=== PATIENT | female | born 1990 | race Caucasian/White ===

== ENCOUNTER → 2022-12-12 11:26 | Outpatient (CLI) | payer OTHER, SELFPAY ==
[2022-12-12 13:04] LABS: Add Manual Diff / Slide Review NO; Basophils Absolute Auto 0 /uL (0-100); Basophils Percent Auto 0.4 % (0-2); Eosinophils Absolute Auto 100 /uL (0-450); Eosinophils Percent Auto 1.3 % (2-4); Hematocrit 41.9 % (36-46); Hemoglobin 14.3 g/dL (12.0-16.0); Lymphocytes Absolute Auto 2700 /uL (1100-4500); Lymphocytes Percent Auto 30.3 % (25-40); Mean Corpuscular HGB Conc 34.1 % (30-36); Mean Corpuscular Hemoglobin 30.7 PG (26-34); Mean Corpuscular Volume 90.1 fL (80-100); Monocytes Absolute Auto 800 /uL (0-900); Neutrophils Absolute Auto 5200 /uL (1500-7000); Platelet Count 205 X10^3/uL (150-400); Red Blood Cell Count 4.65 X10^6/uL (4.0-5.2); Red Cell Distribution Width 13.2 % (11.6-14.8); White Blood Cell Count 8.8 X10^3/uL (4.5-11.0)
[2022-12-12 13:05] LABS: Appearance Urine UA CLEAR; Bilirubin Urine UA NEGATIVE (NEGATIVE); Color Urine UA YELLOW; Glucose Urine UA NEGATIVE (Negative); Ketones Urine UA NEGATIVE (NEGATIVE); Leukocyte Esterase Urine UA TRACE (NEGATIVE); Nitrite Urine UA NEGATIVE (Negative); Occult Blood Urine UA NEGATIVE (Negative); Protein Urine UA NEGATIVE (Negative); Urobilinogen Urine UA 0.2 E.U./dL (0.2)
[2022-12-12 13:15] LABS: Bacteria Urine Few (2-10); RBC Urine 0-1/HPF (0-5/HPF); WBC Urine 1-5/HPF (0-5/HPF); pH Urine UA 6.5 (4.5-8.0)
[2022-12-12 13:16] LABS: Culture Indicated Urine Cult Not Indicated; Squamous Epithelial Cell Urine 1-5 /HPF (0-5/HPF)
[2022-12-13 05:24] LABS: RPR Screen Non Reactive (Non Reactive)
[2022-12-13 09:46] LABS: Varicella IgG Antibody 2461 index (Immune >165)
[2022-12-13 16:04] LABS: Hepatitis B Surface Antigen NEGATIVE s/c (NEGATIVE); Rubella Antibody IgG 34.8 IU/mL (>15)
[2022-12-13 16:17] LABS: HIV 1 & 2 Ab/Ag 4th Gen Combo NEGATIVE (NEGATIVE); Hep C Virus Ab w/Reflex Quant NEGATIVE s/c (NEGATIVE)
== END ==
PROVIDERS: PCP Family Medicine; Visit Provider Student in an Organized Health Care Education/Training Program
DX: O09.511 Supervision of elderly primigravida, first trimester (principal); Z34.01 Encounter for supervision of normal first pregnancy, first trimester
CPT/HCPCS: 36415; 80055; 81003; 81015; 86787; 86803; 86850; 86900; 86901; 87086; 87389

== ENCOUNTER → 2023-02-20 10:16 | Outpatient (CLI) | payer OTHER, SELFPAY ==
--- NOTE | 2023-02-20 10:19 | DI.US.S_ITS ---
PROCEDURE: US OB >= 14 WEEKS FETUS INDICATIONS: 20 week gestation anatomy scan OUTSIDE/PRIOR DATING DATA: Last menstrual period (LMP): 10/01/2022. LMP-based estimated date of delivery (JERICA): 07/08/2023. First dating scan (date and location): 02/20/2023 at . Estimated date of delivery (JERICA) from first dating scan: 07/06/2023. TECHNIQUE: Real-time scanning was performed of the fetus, with image documentation and biometric measurements. COMPARISON: None. FINDINGS: General: A single living intrauterine gestation is present. Presentation: Transverse; head to the left. Placenta: Placental position is posterior , without previa. Amniotic fluid index: 15.7 cm, normal range is 5-24 cm. Single deepest vertical pocket is 4.3 cm. heart rate: 155 beats per minute. Maternal cervical canal: 4.4 cm long. Normal lower limit is 2.5 cm. biometrics: Biparietal diameter: 20 weeks 5 days Head circumference: 20 weeks 2 days Abdominal circumference: 20 weeks 0 day Femur length: 20 weeks 3 days Clinically estimated gestational age: 20 weeks 2 days Composite gestational age from present scan: 20 weeks 4 days Estimated weight and percentile: 373 g; 70%. Anatomic survey: Neuro: Ventricles are non-dilated at less than 10 mm. Cisterna magna is normal at 3-11 mm. Cerebellum is normal in size and morphology. Nuchal skin fold: Normal at less than 6 mm between 14-21 weeks gestational age. Face: Nose and lips, facial profile are normal. Spine: No evidence for spina bifida. Heart: 4-chambered heart is present, with normal ventricular outflow tracts. Diaphragm: Diaphragm is intact. Stomach: Left-sided stomach is present. Kidneys: No hydronephrosis. Normal is less than 5 mm in 2nd trimester, less than 7 mm in 3rd trimester. Cord: 3-vessel cord has orthotopic insertion. Bladder: Normal in size. Extremities: All 4 extremities identified. IMPRESSION: 1. A single living intrauterine gestation with appropriate interval growth. 2. Normal anatomic survey. We strive to produce accurate, complete, and clear reports of imaging services. To assist us in improving patient care, this report was composed using standard report templates and voice recognition software. Therefore, it may contain abnormal punctuation, insertions and/or omissions. Occasional wrong-word or sound-alike substitutions may occur. Though we review the report and make efforts to correct it, we do recommend that the report be read carefully in proper context to recognize any text inaccuracies. Dictated by: Deshawn Ferrer M.D. on 02/20/2023 at 16:39 Approved by: Deshawn Ferrer M.D. on 02/20/2023 at 16:42
== END ==
PROVIDERS: PCP Student in an Organized Health Care Education/Training Program; Referring Provider Student in an Organized Health Care Education/Training Program; Visit Provider Student in an Organized Health Care Education/Training Program
DX: Z36.89 Encounter for other specified antenatal screening (principal); Z3A.20 20 weeks gestation of pregnancy
CPT/HCPCS: 76811

== ENCOUNTER → 2023-03-20 11:48 | Outpatient (CLI) | payer OTHER, SELFPAY ==
[2023-03-20 12:18] LABS: Hematocrit 38.4 % (36-46); Hemoglobin 13.3 g/dL (12.0-16.0)
== END ==
PROVIDERS: PCP Student in an Organized Health Care Education/Training Program; Referring Provider Student in an Organized Health Care Education/Training Program; Visit Provider Student in an Organized Health Care Education/Training Program
DX: Z34.92 Encounter for supervision of normal pregnancy, unspecified, second trimester (principal); Z3A.24 24 weeks gestation of pregnancy
CPT/HCPCS: 36415; 85014; 85018

== ENCOUNTER 2023-07-18 10:44 | Inpatient (IN) | payer OTHER, SELFPAY ==
[2023-07-18 11:35] VITALS: BP 148/77
--- NOTE | 2023-07-18 11:59 | P.HPOB_ITS ---
OB HPI Date/Time Date of admission: 07/18/23 Date Patient Seen: 07/18/23 Time Patient Seen: 11:40 History of Present Condition Chief complaint: Active Labor : 1 Para: 0 Estimated Date of Delivery: 07/07/23 Estimated Gestational Age (weeks): 41w4d Narrative: Flaquita Fonseca is a 32 year old female at 41 weeks and 4 days by sure LMP concordant with 9 week US. She transferred to midwifery care at 28 weeks from [facility] and has had a normal healthy , notable only for having declined routine GDM screening. She began noticing stronger contractions last night at 1830 and [place] [facility] [place] [address] Around 0030 this AM her contractions intensified and became regular at approximately every 5-7 minutes. She noticed an involuntary gush of fluid while voiding on admit. Isn't sure if she's been feeling FM or not. no vaginal bleeding. She presents to with her [place] in good spirits and coping well. History of Present care: good care, initiated at week # (8), number of visits (13) and pounds weight gain (24) Dating criteria: LMP confirmed by 1st trimester US Ultrasounds: normal 1st trimester US and normal mid trimester US Obstetrical complications: none Medical complications: none Preadmission Labs Blood type: A (+) positive -: Antibody screen: positive, Cystic fibrosis screen: unknown, GBS status: negative, HBsAG: negative, HIV: negative, HSV 1: unknown, HSV 2: unknown and RPR/VDLR: negative -: Chlamydia screen: not detected and Gonorrhea screen: not detected -: Rubella: immune and Varicella: immune HCT: 41.9 HCAB: negative PAP: Abnormal (HPV negative, ASCUS detected) Cell-free DNA: Negative, XY Narrative: WNL Profiling completed in late Mar/early Apr (approx 27 weeks) x 5 days per [facility] FP Prior (ies) History: No prior pregnancies Evaluation Evaluation Baseline heart rate: 135 Variability: Moderate (11-25) monitor accelerations: Present Monitor Decelerations: Early Contraction Frequency (minutes): 5 Uterine Contraction Intensity: Strong/Firm Status: Category l Dilation (cm): 5 Effacement (%): 75 Dilation: >/=5 cm Effacement: 60-70% station: -2 Position of cervix: posterior Consistency: soft Higuera score: 8 PFSH Medical History 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, unintentional Chicken pox (~1997) Bilateral shoulder pain (~2004) Surgical History History of removal of skin mole Anesthesia History of shoulder surgery (~2005) Family History Grandfather History of heart disease Hyperlipidemia Hypertension Father Family estrangement Grandmother Hypertension H/O: hysterectomy Mother H/O: hysterectomy Social History marital status: number of children: 0 household members: spouse (private home on shared property w/ in-laws) lives independently: Yes caregiver/support person: No housing: house pets and animals: Yes (2 dogs) education level: master's degree (communications) occupational status: employed ([employer]) current occupational exposures/hazards: No special connor needs: No travel history: over 6 months ago ([place]) seatbelt use: always helmet use: Yes water heater temp set < 120 deg: Yes working smoke detector in home: Yes fire extinguisher in home: Yes carbon monox detector in home: Yes firearms in home: Yes firearms unloaded and locked: Yes do you feel safe at home: Yes Smoking Status: Never smoker second hand exposure: No alcohol intake: former (~1-2/week when not ) substance use type: does not use during the past year weight has: remained stable well-balanced diet: daily or most days daily servings fruits/ve-4 caffeine: Yes (1 cup tea/day) Type(s) of exercise: walking frequency: daily duration: 45-60 minutes/day Meds Home Medications and Allergies Home Medications Medication Instructions Recorded Confirmed Type epinephrine 0.3 mg/0.3 mL 0.3 mg (0.3 mL) IM Q5-15M PRN 11/06/22 07/18/23 Rx injection, auto-injector hypersensitivity reaction #2 ea vitamin-ferrous sulfate See Rx Instructions .Route .COMPLEX 11/30/22 07/18/23 History 27 mg iron-folic acid 0.8 mg tablet Allergies Allergy/AdvReac Type Severity Reaction Status Date / Time bee venom protein (honey bee) Allergy Intermediate Rash Verified 07/18/23 12:32 Review of Systems Review of Systems ROS: Yes All systems reviewed with the patient and are negative except as otherwise documented OB Exam Vital signs Blood Pressure: 148/77 Pulse Rate: 88 Respiratory Rate: 18 Temperature: 36.3 F Presentation: vertex Objective Labs 07/18/23 12:07 07/18/23 12:07 Assessment and Plan Assessment and Plan Assessment and Plan narrative: A: Postdates [place] Active labor Elevated BP without dx fo HTN Low concern for SROM FHR Cat 1 P: Admit to labor unit Preeclampsia panel ordered May switch to intermittent auscultation Expectant management Reassess in 4 hours or sooner PRN
[2023-07-18 12:17] LABS: Add Manual Diff / Slide Review NO; Basophils Absolute Auto 100 /uL (0-100); Basophils Percent Auto 0.5 % (0-2); Eosinophils Absolute Auto 0 /uL (0-450); Eosinophils Percent Auto 0.1 % (2-4); Hematocrit 42.9 % (36-46); Hemoglobin 14.5 g/dL (12.0-16.0); Lymphocytes Absolute Auto 2200 /uL (1100-4500); Lymphocytes Percent Auto 14.3 % (25-40); Mean Corpuscular HGB Conc 33.8 % (30-36); Mean Corpuscular Hemoglobin 30.3 PG (26-34); Mean Corpuscular Volume 89.6 fL (80-100); Monocytes Absolute Auto 1000 /uL (0-900); Monocytes Percent Auto 6.6 % (3-14); Neutrophils Absolute Auto 12100 /uL (1500-7000); Neutrophils Percent Auto 78.5 % (50-75); Platelet Count 171 X10^3/uL (150-400); Red Blood Cell Count 4.79 X10^6/uL (4.0-5.2); Red Cell Distribution Width 13.6 % (11.6-14.8); White Blood Cell Count 15.4 X10^3/uL (4.5-11.0)
[2023-07-18 12:23] VITALS: BP 148/77; PULSE 88; RESP 18; TEMP 2.4; TEMP 36.3
[2023-07-18 12:30] LABS: Aspartate Aminotransferase 34 IU/L (14-36); BUN Creatinine Ratio 17.5 (6-22); Blood Urea Nitrogen 14 mg/dL (7-17); Estimated Glomerular Filt Rate > 60 mL/min (>60); Uric Acid 5.9 mg/dL (2.5-6.2)
[2023-07-18 14:04] LABS: Creatinine Urine Random 40.6 mg/dL; Protein (Total) Urine Random 13 mg/dL (0-12); Protein Creatinine Ratio Urine 0.32 GRAM/24H
--- NOTE | 2023-07-18 16:12 | PM.OBPNLAB ---
Date/Time Date Patient Seen: 07/18/23 Time Patient Seen: 16:00 Pain Control Pain control: tolerating well and other Comments: Flaquita continues to cope well and remains in good spirits. She received some relief while in the tub for an hour and is now side lying with a peanut ball. She is now using NO2 as well. VS: 117/67, HR 96, T 98.5F Temporal Pelvic Exam Dilation (cm): 6 Effacement (%): 90 station: -1 Amniotic membrane status: Intact Contractions Monitor mode: External Contraction frequency (min): 4 (1.5-6) Contraction duration (min): 60 (60-120) Contraction pattern: Regular Contraction intensity: Moderate Status status: Category ll Heart Rate Baseline: 135 Monitor Accelerations: Present Monitor Decelerations: Variable Monitor Variability: Moderate Comments: 3 hours of FHR reassuring by intermittent auscultation Assessment and Plan Assessment: active labor Plan: continuous present management (Continue expectant management) Comments: A: Active labor Low suspicion of SROM Cat II FHR- overall reassuring P: Continue expectant management Will offer AROM if contractions continue to space Return to intermittent monitoring at RN's discretion Reassess in 4 hours or sooner PRN
--- NOTE | 2023-07-18 20:38 | PM.OBPNLAB ---
Date/Time Date Patient Seen: 07/18/23 Time Patient Seen: 20:00 Pain Control Pain control: tolerating well and other (occasionally using NO2) Comments: Has been laboring well. Tried a Mile's circuit, walking and sitting in the toilet. Continues to feel a lot of low back pain and gets some relief with counter pressure. Has used NO2 for short periods of time and then is able to set it aside and cope well without anesthesia. Is tired and a little frustrated, but does not desire augmentation or interventions. VS: BP 123/73, HR 97bpm, T 36.6C Temporal Labile BPs, but at this time has NOT met criteria for HTN (elevated BPs 4 hours apart) Labs significant for Pr:Cr 0.32 with negative serum labs Pelvic Exam Dilation (cm): 7 Effacement (%): 90 station: -2 Amniotic membrane status: Intact Contractions Monitor mode: External Contraction frequency (min): 4 (3-6) Contraction pattern: Regular Contraction intensity: Moderate Status Heart Rate Baseline: 140 Comments: reassuring by intermittent auscultation Assessment and Plan Assessment: active labor (slow d/t malpresentation) and other (labile BPs, proteinuria) Plan: continuous present management Comments: Discussed options for augmentation: walking or AROM. Patient does not desire interventions at this time. Emotional support and encouragement given. Reassess in 4 hours or sooner, PRN.
[2023-07-18] MEDS: ONDANSETRON 4 MG ODT SL (23:14)
--- NOTE | 2023-07-19 00:58 | PM.OBPNLAB ---
Date/Time Date Patient Seen: 07/19/23 Time Patient Seen: 00:10 Pain Control Pain control: other (Occasional NO2) Comments: Tired, but coping well. Changing positions in bed, using a peanut ball and sitting on the toilet. SROM for clear fluid at 2349. Now open to interventions to help speed labor if minimal cervical change. CNM providing continue labor support x 1 hour. VS: BP 136/79, HR 109, T 36.5C Temporal Pelvic Exam Dilation (cm): 8.5 Effacement (%): 90 station: -2 Amniotic membrane status: Leaking (AROM forebag, clear) Comments: OP presentation Contractions Monitor mode: External Contraction frequency (min): 4 (3-6) Contraction pattern: Regular Contraction intensity: Moderate Status Heart Rate Baseline: 140 Comments: reassuring by intermittent auscultation Assessment and Plan Assessment: active labor (prolonged) Plan: begin patient augmentation Comments: Discussed passage, passenger, power labor dynamic and slowed labor progression d/t malpresentation despite her movement and efforts. Discussed intervention options to help with labor progress: pitocin augmentation, pain relief to help relax, and/or manual rotation of fetus. She is not interested in additional pain relief at this time, but is interested in pitocin if it might help. Order placed. Continue labor support, PRN. Reassess in 2 hours or sooner, PRN.
--- NOTE | 2023-07-19 05:01 | PM.AN.REGBLK ---
Regional Block <Rico Islas, DO - Last Filed: 07/20/23 08:24> Pre-procedure Procedure: Continuous Lumbar Epidural for L&D Attending OB provider: Elsa Shields PMH/ROS narrative: term labor, no complications but some elevated pressures during labor raising concerns for preeclampsia. ASA Class: II Labs: Hct 42.9 % (36-46) 07/18/23 12:07 Plt Count 171 X10^3/uL (150-400) 07/18/23 12:07 Medications: Current Medications Generic Name Dose Route Start Last Admin Trade Name Freq PRN Reason Stop Dose Admin Calcium Carbonate 1,000 mg 07/18/23 11:55 Calcium Carbonate 500 Mg Tab PO Q4HR PRN Dyspepsia Carboprost Tromethamine 250 mcg 07/18/23 11:55 Carboprost 250 Mcg/Ml Ampul IM Q90M PRN Bleeding Fentanyl 100 mcg 07/18/23 11:55 Fentanyl 100 Mcg/2 Ml Inj IV Q1H PRN Pain, Severe (7-10) Oxytocin/Lactated Ringer's 30 unit in 500 mls @ 200 mls/hr 07/18/23 11:55 Oxytocin Premix IV CONT PRN Bleeding Protocol Tranexamic Acid 1,000 mg/ 100 mls @ 200 mls/hr 07/18/23 11:55 Sodium Chloride IV NOW PRN Bleeding Lactated Ringer's 1,000 mls @ 100 mls/hr 07/18/23 12:00 Lactated Ringers IV CONT BRINA Lidocaine HCl 20 ml 07/18/23 11:55 Lidocaine 1% 20 Ml INJ INTRA-OP PRN Post Delivery Methylergonovine Maleate 0.2 mg 07/18/23 11:55 Methylergonovine 0.2 Mg Tablet PO Q6HR PRN Heavy Bleeding Methylergonovine Maleate 0.2 mg 07/18/23 11:55 Methylergonovine 0.2 Mg/Ml Vial IM NOW PRN Bleeding Misoprostol 800 mcg 07/18/23 11:55 Misoprostol 200 Mcg Tablet NY NOW PRN Bleeding Misoprostol 400 mcg 07/18/23 11:55 Misoprostol 200 Mcg Tablet SL NOW PRN Bleeding Naloxone HCl 0.2 mg 07/18/23 11:55 Naloxone 0.4 Mg/Ml Vial IV Q2MIN PRN Opiate Reversal Ondansetron HCl 4 mg 07/18/23 11:55 Ondansetron 4 Mg/2 Ml Inj IV Q4HR PRN Nausea And Vomiting Ondansetron HCl 4 mg 07/18/23 20:37 07/18/23 23:14 Ondansetron 4 Mg Odt SL 4 mg Q4HR PRN Administration Nausea Oxytocin 10 unit 07/18/23 11:55 Oxytocin 10 Unit/Ml Vial IM NOW PRN Bleeding Sodium Chloride 10 ml 07/18/23 21:00 Sodium Chloride 0.9% Flush IV BID BRINA Sodium Chloride 10 ml 07/18/23 11:55 Sodium Chloride 0.9% Flush IV PRN PRN Flush Allergies: Allergies Allergy/AdvReac Type Severity Reaction Status Date / Time bee venom protein (honey bee) Allergy Intermediate Rash Verified 07/18/23 12:32 Procedure Insertion date: 07/19/23 Insertion time: 04:46 Prep/Local: betadine x3 and 1% lidocaine Interspace: L3-4 Patient position: sitting Needle: 18 gauge SumoSkinny (CSE:27g Pencan through Hustead, clear CSF, 1mL 0.25% bupiv MPF) Loss of resistance with: saline FABIANA at (cm): 5 Catheter placed at SKIN (cm): 10 Catheter in SPACE (cm): 5 Insertion: No CSF, No Blood, No Paresthesia with insertion, No Paresthesia with injection and No Test dose reaction Initial Medications TEST DOSE time: 04:48 TEST DOSE: 1.5% lidocaine with epinephrine 1:200k (mL): 3 BOLUS DOSE time: 04:59 BOLUS DOSE (mL): 4 BOLUS DOSE med: other (infusate) Infusion INFUSION: 0.125% bupivacaine and with fentanyl 2 mcg/mL Initial rate (mL/hr): 8 Subsequent interventions: PCEA@8+4 Post-procedure Anesthesia date START: 07/19/23 Anesthesia time START: 04:35 <Alyse Yarbrough, DO - Last Filed: 07/19/23 14:54> Post-procedure Anesthesia date END: 07/19/23 Anesthesia time END: 12:18 Post-procedure Anesthesia Assessment: Yes CV function: HR/BP stable, Yes Resp function: RR/sat/airway adequate, Yes Post-op hydration adequate, Yes Pain control adequate, Yes Nausea & vomiting absent, Yes Temperature > 36 C, Yes Mental status appropriate and No Anesthesia complications
--- NOTE | 2023-07-19 05:10 | PM.OBPNLAB ---
Date/Time Date Patient Seen: 07/19/23 Time Patient Seen: 05:10 Pain Control Pain control: epidural Comments: Feeling frustrated and tired. Continues to feel back pain. Using NO2 occasionally. Epidural was requested and placed with good relief. VS: BP 130/79, HR 100, T 36.7C Temporal Pelvic Exam Dilation (cm): 8.5 Effacement (%): 90 station: -2 Amniotic membrane status: Leaking (clear) Contractions Monitor mode: External Pitocin rate (mU/min): 0 Contraction frequency (min): 3 (2-5) Contraction pattern: Regular Contraction intensity: Moderate Status Heart Rate Baseline: 135 Comments: Reassuring by intermittent auscultation Assessment and Plan Assessment: active labor (5 hours unchanged) Plan: begin patient augmentation (pitocin) Comments: Continuous monitoring. Encourage 2 hours of rest and begin pitocin augmentation. Will consider IUPC @ next check if minimal cervical change. Will consider manual rotation if persistent OP position at next check. Recheck in 2 hours or sooner, PRN.
[2023-07-19] MEDS: ONDANSETRON 4 MG/2 ML INJ IV (06:17)
[2023-07-19 06:48] LABS: Protein (Total) Urine Random 7 mg/dL (0-12)
[2023-07-19 06:57] LABS: Creatinine Urine Random 92.9 mg/dL; Protein Creatinine Ratio Urine 0.07 GRAM/24H
--- NOTE | 2023-07-19 07:09 | PM.OBPNLAB ---
Date/Time Date Patient Seen: 07/19/23 Time Patient Seen: 07:00 Pain Control Pain control: epidural Comments: Comfortable with an epidural, though she is bothered by persistent nausea despite medication. Nurse has been changing position frequently for recurrent variable and early decelerations and has not yet started pitocin. CNM called to bedside for recurrent early decelerations. VS: BP 132/85, HR 106, T 36.7C Temporal Pelvic Exam Dilation (cm): 8.5 Effacement (%): 90 station: -1 Amniotic membrane status: Leaking (clear) Contractions Monitor mode: External Contraction frequency (min): 4 (3-6) Contraction pattern: Regular Contraction intensity: Moderate Status status: Category ll Heart Rate Baseline: 125 Monitor Accelerations: Present Monitor Decelerations: Early and Variable Monitor Variability: Moderate Assessment and Plan Assessment: active labor Plan: begin patient augmentation Comments: Counseled on long labor with stalled progress. Discussed delay in starting pitocin d/t FHR decelerations. Recommend IUPC placement now to help determine contraction adequacy and assist in pitocin titration. Patient agrees and IUPC placed. Initial MVU is 36. RN to start pitocin now. Reassess 2 hours after adequate contractions or sooner, PRN.
[2023-07-19] MEDS: OXYTOCIN PREMIX 30 UNIT/500 ML PLAST..BAG IV (08:00)
[2023-07-19] MEDS: diphenhydrAMINE 50 MG/ML VIAL IV (10:14)
--- NOTE | 2023-07-19 10:18 | PM.OBPNLAB ---
Date/Time Date Patient Seen: 07/19/23 Time Patient Seen: 09:51 Pain Control Pain control: epidural Comments: VS: BP 131/82, HR 87bpm, T 97.8F Temporal Pelvic Exam Dilation (cm): 9.5 Effacement (%): 90 station: -1 Amniotic membrane status: Leaking (clear) Comments: edema palpated in anterior cervix Contractions Monitor mode: External Pitocin rate (mU/min): 3 Contraction frequency (min): 3 Contraction pattern: Regular Contraction intensity: Strong/Firm Intrauterine tone measurement: 220 (Adequate x 1-1.5 hours) Status status: Category ll Heart Rate Baseline: 120 Monitor Accelerations: Present Monitor Decelerations: Early and Variable Comments: Assessment and Plan Assessment: active labor Plan: continuous present management Comments: Continue close monitoring of prolonged active phase with malpresentation. Anesthesia and OC OB aware of patient and possibility of need for surgical . Patient is aware and agrees if no descent at next check. Reassess in 2-3 hours or sooner, PRN.
[2023-07-19] MEDS: FENT 2MCG/ML BUPIV 0.125% EPI 200 MCG/100 ML PLAST..BAG 8 MCG EPIDURAL (10:59)
--- NOTE | 2023-07-19 12:24 | PM.AN.REGBLK ---
Regional Block Pre-procedure Labs: Hct 42.9 % (36-46) 07/18/23 12:07 Plt Count 171 X10^3/uL (150-400) 07/18/23 12:07 Medications: Current Medications Generic Name Dose Route Start Last Admin Trade Name Freq PRN Reason Stop Dose Admin Calcium Carbonate 1,000 mg 07/18/23 11:55 Calcium Carbonate 500 Mg Tab PO Q4HR PRN Dyspepsia Carboprost Tromethamine 250 mcg 07/18/23 11:55 Carboprost 250 Mcg/Ml Ampul IM Q90M PRN Bleeding Diphenhydramine HCl 25 mg 07/19/23 10:51 Diphenhydramine 50 Mg/Ml Vial IV Q10M PRN Pruritis Fentanyl 100 mcg 07/18/23 11:55 Fentanyl 100 Mcg/2 Ml Inj IV Q1H PRN Pain, Severe (7-10) Oxytocin/Lactated Ringer's 30 unit in 500 mls @ 200 mls/hr 07/18/23 11:55 Oxytocin Premix IV CONT PRN Bleeding Protocol Tranexamic Acid 1,000 mg/ 100 mls @ 200 mls/hr 07/18/23 11:55 Sodium Chloride IV NOW PRN Bleeding Lactated Ringer's 1,000 mls @ 100 mls/hr 07/18/23 12:00 Lactated Ringers IV CONT BRINA Oxytocin/Lactated Ringer's 30 unit in 500 mls @ 2 mls/hr 07/19/23 07:34 07/19/23 08:00 Oxytocin Premix IV 2 milliunit/min TITRATE BRINA 2 mls/hr Administration Protocol 2 MILLIUNIT/MIN FENT 2MCG/ML BUPIV 0.125% EPI 200 mcg in 100 mls @ 8 mls/hr 07/19/23 11:00 07/19/23 10:59 Fentanyl/Bupiv/Ns 2mcg/Ml - 0.125% EPIDURAL 8 mls/hr CONT BRINA Administration Lidocaine HCl 20 ml 07/18/23 11:55 Lidocaine 1% 20 Ml INJ INTRA-OP PRN Post Delivery Methylergonovine Maleate 0.2 mg 07/18/23 11:55 Methylergonovine 0.2 Mg Tablet PO Q6HR PRN Heavy Bleeding Methylergonovine Maleate 0.2 mg 07/18/23 11:55 Methylergonovine 0.2 Mg/Ml Vial IM NOW PRN Bleeding Misoprostol 800 mcg 07/18/23 11:55 Misoprostol 200 Mcg Tablet [place] NOW PRN Bleeding Misoprostol 400 mcg 07/18/23 11:55 Misoprostol 200 Mcg Tablet SL NOW PRN Bleeding Nalbuphine HCl 2.5 mg 07/19/23 10:51 Nalbuphine 20 Mg/Ml Ampul IV Q10M PRN Pruritis Naloxone HCl 0.2 mg 07/18/23 11:55 Naloxone 0.4 Mg/Ml Vial IV Q2MIN PRN Opiate Reversal Ondansetron HCl 4 mg 07/18/23 11:55 07/19/23 06:17 Ondansetron 4 Mg/2 Ml Inj IV 4 mg Q4HR PRN Administration Nausea And Vomiting Ondansetron HCl 4 mg 07/18/23 20:37 07/18/23 23:14 Ondansetron 4 Mg Odt SL 4 mg Q4HR PRN Administration Nausea Oxytocin 10 unit 07/18/23 11:55 Oxytocin 10 Unit/Ml Vial IM NOW PRN Bleeding Sodium Chloride 10 ml 07/18/23 21:00 Sodium Chloride 0.9% Flush IV BID BRINA Sodium Chloride 10 ml 07/18/23 11:55 Sodium Chloride 0.9% Flush IV PRN PRN Flush Sodium Chloride 10 ml 07/19/23 21:00 Sodium Chloride 0.9% Flush IV BID BRINA Sodium Chloride 10 ml 07/19/23 10:51 Sodium Chloride 0.9% Flush IV PRN PRN Flush Allergies: Allergies Allergy/AdvReac Type Severity Reaction Status Date / Time bee venom protein (honey bee) Allergy Intermediate Rash Verified 07/18/23 12:32
--- NOTE | 2023-07-19 12:43 | P.PCNOB_ITS ---
Events: Labor Augmentation and Meconium Stained Fluid Labor & Delivery Delivery date: 07/19/23 Intrapartal Events: Prolonged Labor > 20 hours Cervical ripening method: none Induction method: none Delivery augmentation: pitocin Delivery monitor: external FHT and internal uterine Route of delivery: Episiotomy description: None L&D Laceration Description: Superficial Quantitative Blood Loss: 425 Anesthesia Type: Epidural Narrative: Pushing initiated at at anterior lip and 0 station d/t Cat II FHR with prolonged active phase labor. Lip was reduced on first push an rotation of head was noted. Meconium stained amniotic fluid was noted during second stage. RT was called to standby for the for meconium and Cat II FHR. Coaching, encouragement and strong maternal efforts led to NSVB of a viable baby boy in MAURICIO position. There was a 90 second should dystocia that was resolved with McRobert's and suprapubic pressure. Terminal meconium was noted. [place] was lifted to maternal abdomen by CNM and FOB where drying and stimulation occurred. Spontaneous cry was heard in <30 seconds. 30 units of pitocin in 500mL LR was started at 250mL/hr for active management of the third stage and then increased to a bolus for brisk bleeding. After cessation of pulsation, the cord was double clamped by CNM and cut by FOB. Hospital cord blood sample was collected. Gentle cord traction and a single maternal push led to spontaneous, Schultze delivery of an apparently intact placenta, membranes and 3VC. Fundus immediately firm and bleeding small. Inspection revealed a superficial right la bial split that was hemostatic with no indication for repair. QBL 425mL. Both mother and baby stable and skin to skin as I left the room. Baby 1: Infant gender: Male Presentation: vertex Position: Left Occiput Anterior Placenta delivery description: Spontaneous Cord Vessel Description: 3 Vessels score (1 min): 7 score (5 min): 9 weight: 3.589 kg Plan for aftercare: Routine care
[2023-07-19] MEDS: KETOROLAC 30 MG/ML VIAL IV (13:18)
[2023-07-19] MEDS: LANOLIN OINT 7 GM 1 APPLIC TOP (13:18)
[2023-07-19] MEDS: DERMOPLAST SPRAY 20% 60 ML 1 SPRAY TOP (13:18)
--- NOTE | 2023-07-20 08:12 | P.DS_ITS ---
Discharge Providers Provider Date of admission: 07/18/23 10:44 Discharge Date: 07/20/23 Primary care physician: Lindy Pacheco MD Consults: 07/20/23 12:40 Consult to Apprenticeship Representative Routine Comment: Discharge provider: Elsa Shields CNM Summary Hospital Course Date Patient Seen: 07/20/23 Time Patient Seen: 08:13 Diagnoses: O80 Hospital Course: PPD1: Stable s/p NSVB with prolonged active phase labor and no lacerations. Voiding, ambulating and independently. Tolerating a general diet. Cramping pain is well controlled with ibuprofen. Vaginal bleeding is like a heavy period. Partner remains present and supportive and they feel ready to take their baby home today. Peripartum Data Delivery Method: Natural Vaginal Laceration Description: Superficial Episiotomy description: None Procedures: O80 complications: none 1: Gender: Male Disposition of : home Discharge Diagnosis (1) Encounter for full-term uncomplicated delivery: Status: Acute Problem Details: Routine course Status at Discharge Cognitive/behavioral status at discharge: oriented and calm Functional status at discharge: independent ambulation Overall status at discharge: patient is progressing back to baseline Time Spent with Patient Time attestation: Total time spent providing and/or coordinating discharge services: Objective Labs 07/18/23 12:07 07/18/23 12:07 Exam Vital Signs (past 8 hours): BP 111/77, HR 74bpm, T 97.6F Other: Fundus firm @ U-1, lochia moderate, perineum intact Discharge Plan Discharge Plan Patient Disposition: Home Discharge orders & Medications Prescriptions: New ibuprofen 600 mg Tablet 600 mg PO Q6HR PRN (Reason: Pain, Mild (1-3)) 14 Days Qty: 60 0RF Continued vit-ferrous sulfat-FA 27 mg iron- 0.8 mg tablet See Rx Instructions .ROUTE .COMPLEX Rx Instructions: Take as directed epinephrine 0.3 mg/0.3 mL auto-injector 0.3 mg IM Q5-15M PRN (Reason: hypersensitivity reaction) Qty: 2 1RF Rx Instructions: do not exceed 3 doses per episode. for severe reaction to bee sting, and or trouble breathing related to bee sting Follow up/Referrals: Elsa Shields CNM [[employer]] - (Follow-up phone call 08/01/23@ 2:30pm Follow-up in office 08/29/23 @ 12:45pm) Lindy Pacheco MD [Primary Care Provider] - Diet/Activity/Treatments Diet: Diet as Tolerated and Regular Activity: bed rest x2 weeks, pelvic rest x 6 weeks Skin/Wound/Dressing Care Report to your healthcare provider any signs of infection, such as:: chills, fever, increased pain, unusual drainage and unusual redness Visit Report/Discharge Packet Instructions: Depression Stand Alone Forms: Patient Portal/API, Stroke Signs & Symptoms Discharge Data Primary Care Provider: Lindy Pacheco
== END 2023-07-20 10:15 | disposition home or self-care (01) | DRG 807 ==
PROVIDERS: Admitting Provider Nurse Practitioner Obstetrics & Gynecology; PCP Student in an Organized Health Care Education/Training Program; Referring Provider Nurse Practitioner Obstetrics & Gynecology; Visit Provider Nurse Practitioner Obstetrics & Gynecology
DX: O48.0 Post-term pregnancy (principal); Z37.0 Single live birth; O63.1 Prolonged second stage (of labor); O76 Abnormality in fetal heart rate and rhythm complicating labor and delivery; Z3A.41 41 weeks gestation of pregnancy
CPT/HCPCS: 59050; 76815; 82570; 84156; 84450; 84550; 85025; 86850; 86900; 86901; G0379; J1200; J1885; J2405; J2590